=== PATIENT | female | born 1970 | race American Indian/Alaskan Native ===

== ENCOUNTER 2017-07-11 14:23 | Inpatient (IN) | payer OTHER ==
[2017-07-11] MEDS ORDERED: Enalaprilat 2.5 MG/2 ML IV ONE (15:15)
[2017-07-11] MEDS ORDERED: Enalaprilat 2.5 MG/2 ML ONE (15:34)
[2017-07-11 15:47] LABS: BASO % 0.3 % (0.0-2.0); EOS % 0.5 % (0.0-4.0); HEMOGLOBIN 12.3 g/dL (11.0-16.0); LYMPH # 1.3 K/uL (1.0-4.3); LYMPH % 12.7 % (20.0-40.0); MEAN CELL VOLUME 87.2 fL (81.0-99.0); MEAN CORPUSCULAR HEMOGLOBIN 29.2 pg (27.0-31.0); MEAN CORPUSCULAR HGB CONC 33.5 g/dL (33.0-37.0); MEAN PLATELET VOLUME 7.8 fL (7.2-11.7); MONO # 0.3 K/uL (0.0-0.8); MONO % 3.3 % (0.0-10.0); NEUT # 8.4 K/uL (1.8-7.0); NEUT % 83.2 % (50.0-75.0); RBC 4.22 Mil/uL (3.80-5.20); RED CELL DISTRIBUTION WIDTH 12.9 % (11.5-14.5); WHITE BLOOD COUNT 10.1 K/uL (4.8-10.8)
[2017-07-11 16:00] LABS: ALBUMIN 4.2 g/dL (3.5-5.0); CALCIUM 11.6 mg/dl (8.6-10.4)
--- NOTE | 2017-07-11 16:11 | CT ---
PROCEDURE: CT HEAD WITHOUT CONTRAST. HISTORY: Headache. Hypertension. COMPARISON: None available. TECHNIQUE: Axial computed tomography images were obtained through the head/brain without intravenous contrast. Radiation dose: Total exam DLP = 888 mGy-cm. This CT exam was performed using one or more of the following dose reduction techniques: Automated exposure control, adjustment of the mA and/or kV according to patient size, and/or use of iterative reconstruction technique. FINDINGS: HEMORRHAGE: No intracranial hemorrhage. BRAIN: No mass effect or edema. No atrophy or chronic microvascular ischemic changes. VENTRICLES: Unremarkable. No hydrocephalus. CALVARIUM: Unremarkable. PARANASAL SINUSES: Unremarkable as visualized. No significant inflammatory changes. MASTOID AIR CELLS: Unremarkable as visualized. No inflammatory changes. OTHER FINDINGS: None. IMPRESSION: Normal CT of the Head.
[2017-07-11] MEDS ORDERED: Labetalol 25mg/5ml Syringe IVP STA (19:51)
[2017-07-11] MEDS ORDERED: Labetalol 25mg/5ml Syringe ONE (20:00)
--- NOTE | 2017-07-11 21:30 | C.PDOC ---
Time Seen by Provider: 07/11/17 14:53 Chief Complaint (Nursing): High Blood Pressure History Per: Patient Onset/Duration Of Symptoms: Unknown Current Symptoms Are (Timing): Still Present Associated Symptoms: Headache Severity: Severe Exacerbating Factor(s): Pos: None Additional History Per: Prior Records Past Medical History Reviewed: Historical Data, Nursing Documentation, Vital Signs Vital Signs: Last Vital Signs Temp 98.9 F 07/11/17 17:35 Pulse 72 07/11/17 17:35 Resp 16 07/11/17 17:35 BP 191/121 H 07/11/17 18:28 Pulse Ox 100 07/11/17 17:35 - Medical History PMH: HTN Family History: States: Unknown Family Hx - Social History Hx Alcohol Use: Yes Hx Substance Use: No Review Of Systems Except As Marked, All Systems Reviewed And Found Negative. Constitutional: Negative for: Fever, Weakness Eyes: Negative for: Vision Change Cardiovascular: Negative for: Chest Pain Respiratory: Negative for: Shortness of Breath Gastrointestinal: Negative for: Vomiting, Abdominal Pain Musculoskeletal: Negative for: Neck Pain, Back Pain Skin: Negative for: Rash Neurological: Positive for: Headache. Negative for: Weakness, Numbness, Seizures, Altered Mental Status Physical Exam - Physical Exam Appears: Non-toxic, No Acute Distress Skin: Normal Color, Warm, Dry, No Rash Head: Atraumatic, Normacephalic Eye(s): bilateral: PERRL, EOMI Neck: Normal ROM, Supple Cardiovascular: Rhythm Regular Respiratory: Normal Breath Sounds, No Accessory Muscle Use Gastrointestinal/Abdominal: Soft, No Tenderness Back: No CVA Tenderness Extremity: Normal ROM, No Pedal Edema, No Calf Tenderness Neurological/Psych: Oriented x3, Normal Speech, Normal Cognition, Normal Motor, Normal Sensation ED Course And Treatment - Laboratory Results Result Diagrams: 07/11/17 15:42 07/11/17 15:42 Lab Interpretation: Abnormal Interpretation Of Abnormal: Renal insufficiency O2 Sat by Pulse Oximetry: 100 Pulse Ox Interpretation: Normal - CT Scan/US CT head Other Rad Studies (CT/US): Read By Radiologist, Radiology Report Reviewed CT/US Interpretation: IMPRESSION: Normal CT of the Head. Progress - Interventions Interventions:: Observation - Medications Administered Oral: Acetaminophen, Antihypertensive Intravenous: Antihypertensive - Data Reviewed Data Reviewed: Lab, Diagnostic imaging, Old records - Patient Status Patient status: Partially improved - Critical Care Citical Care: Excluding Proc Time Critical Care Time: 60 minutes - Continuity of Care Discussed patient case with:: Patient, ED Nurse, On-call PMD-pt unassigned - Patient Plan Patient Plan: Admission, Telemetry Disposition Discussed With : Lg Martinez Comment: He accepted pt on hospitalist service. Doctor Will See Patient In The: Hospital Counseled Patient/Family Regarding: Studies Performed, Diagnosis - Disposition Disposition: HOSPITALIZED Disposition Time: 21:32 Condition: GUARDED - Clinical Impression Clinical Impression: Hypertensive urgency
[2017-07-11] MEDS ORDERED: Albuterol-Ipratrop 3 mg / 0.5 (3 ml) UD ONE (22:20)
--- NOTE | 2017-07-11 22:59 | CP.PCM.HP ---
<Mary Han - Last Filed: 07/12/17 14:55> History of Present Illness - History of Present Illness History of Present Illness: CC: headache, nausea HPI: 46-year-old female presents to ED via ambulance for evaluation of headache and nausea for one day. She states the pain started gradually throughout the morning, rated 10/10 at its worst with no relief from Excedrin. She then went to urgent care who referred her to ED via ambulance for evaluation. Pain located "at the top of the head" with no radiation, described as dull and throbbing. She states this is the second episode, first occurred approximately 2 weeks ago with symptoms lasting "a few days" and resolving spontaneously. Pain is currently rated 6/10. Patient states she was previously on anti- hypertensive medication for about 1 year, then PMD stopped it in October 2016. Reports unrestricted diet including salty/fried foods and also drinks caffeinated soda and tea daily. Patient denies vision change, photophobia, phonophobia, recent illness, dizziness, neck stiffness, nausea/vomiting, diarrhea/constipation. Patient denied ever seeing a real estate appraiser supervisor or having studies done on the heart. 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 Laura Goodman Present on Admission - Present on Admission Any Indicators Present on Admission: No History of DVT/PE: No History of Uncontrolled Diabetes: No Urinary Catheter: No Decubitus Ulcer Present: No Review of Systems - Review of Systems All systems: reviewed and no additional remarkable complaints except - Constitutional Constitutional: Headache. absent: Anorexia, Fever, Frequent Falls, Malaise - EENT Eyes: absent: Blurred Vision, Change in Vision, Diplopia Nose/Mouth/Throat: absent: Sinus Pressure, Sore Throat, Throat Swelling, Neck Pain - Cardiovascular Cardiovascular: absent: Chest Pain, Diaphoresis, Dyspnea - Respiratory Respiratory: absent: Cough, Dyspnea - Gastrointestinal Gastrointestinal: absent: Abdominal Pain, Change in Stool Character, Constipation, Diarrhea - Musculoskeletal Musculoskeletal: As Per HPI. absent: Abnormal Gait, Arthralgias, Back Pain, Limited Range of Motion, Loss of Height, Muscle Weakness, Neck Pain - Neurological Neurological: Disequilibrium. absent: Abnormal Gait, Abnormal Hearing - Psychiatric Psychiatric: absent: Anxiety Past Patient History - Past Social History Smoking Status: Former Smoker Alcohol: Social - CARDIAC Hx Hypertension: Yes - PSYCHIATRIC Hx Substance Use: No Meds Allergies/Adverse Reactions: Allergies Allergy/AdvReac Type Severity Reaction Status Date / Time No Known Allergies Allergy Verified 07/11/17 14:28 Physical Exam - Constitutional Appears: Non-toxic, No Acute Distress - Head Exam Head Exam: ATRAUMATIC, NORMAL INSPECTION, NORMOCEPHALIC - Eye Exam Eye Exam: EOMI, Normal appearance Pupil Exam: NORMAL ACCOMODATION, PERRL - ENT Exam ENT Exam: Mucous Membranes Moist - Neck Exam Neck exam: Positive for: Normal Inspection. Negative for: Tenderness, Thyromegaly - Respiratory Exam Respiratory Exam: Clear to Auscultation Bilateral, NORMAL BREATHING PATTERN. absent: Accessory Muscle Use - Cardiovascular Exam Cardiovascular Exam: REGULAR RHYTHM, +S1, +S2. absent: Bradycardia, Tachycardia - GI/Abdominal Exam GI & Abdominal Exam: Soft. absent: Distended, Firm, Tenderness - Extremities Exam Extremities exam: Positive for: full ROM, normal capillary refill, normal inspection, pedal pulses present. Negative for: calf tenderness, pedal edema - Back Exam Back exam: FULL ROM, NORMAL INSPECTION. absent: CVA tenderness (L), CVA tenderness (R) - Neurological Exam Neurological exam: CN II-XII Intact, Oriented x3, Reflexes Normal - Psychiatric Exam Psychiatric exam: Normal Affect, Normal Mood Results - Vital Signs Recent Vital Signs: Last Vital Signs Temp 98.9 F 07/11/17 17:35 Pulse 72 07/11/17 17:35 Resp 17 07/11/17 22:33 BP 154/98 H 07/11/17 22:53 Pulse Ox 100 07/11/17 21:32 - Labs Result Diagrams: 07/11/17 15:42 07/11/17 15:42 Labs: Laboratory Results - last 24 hr 07/11/17 07/11/17 15:42 15:42 WBC 10.1 RBC 4.22 Hgb 12.3 Hct 36.8 MCV 87.2 MCH 29.2 MCHC 33.5 RDW 12.9 Plt Count 259 MPV 7.8 Neut % (Auto) 83.2 H Lymph % (Auto) 12.7 L [place] % (Auto) 3.3 Eos % (Auto) 0.5 Baso % (Auto) 0.3 Neut # (Auto) 8.4 H Lymph # (Auto) 1.3 [place] # (Auto) 0.3 Eos # (Auto) 0.0 Baso # (Auto) 0.0 Sodium 141 Potassium 3.8 Chloride 105 Carbon Dioxide 25 Anion Gap 15 BUN 26 H Creatinine 1.8 H Est GFR ( Amer) 37 Est GFR (Non-Af Amer) 30 Random Glucose 98 Calcium 11.6 H Total Bilirubin 0.4 AST 22 ALT 18 Alkaline Phosphatase 134 H Total Protein 8.4 H Albumin 4.2 Globulin 4.3 H Albumin/Globulin Ratio 1.0 Assessment & Plan - Assessment and Plan (Free Text) Assessment: HTN urgency Patient has history of htn for which she was given htn medication and was told to stop in October 2016 [facility] in [place] is her Pharmacy (for follow up on the names and doses of her medications) Patient was admitted to telemetry Blood pressure SBP 170s after labetalol and hydralazine in ER home diet: fried food, salty food. f/u Lipid Panel f/u A1c f/u TSH f/u ROMIs x 3 f/u EKGs x 3 Imaging: CT head: no acute processes noted medications in ER: Vasotec 15:15, Amlodipine 5 mg PO given 17:50, Labetalol 20 mg IVP 19:51, Hydralazine 21:26, Labetalol 200 mg PO 21:26 Medications: Metoprolol 25 mg PO BID Hydralazine 10 mg IVP Q6H PRN HTN Crestor 20 mg POQHS Neurochecks Q4H Renal Insufficiency BUN/Cr elevated monitor consider Nephro consult if BUN/Cr remains elevated Prophylaxis scds discussed with Dr. Michelle Han DO PGY1 - Date & Time Date: 07/11/17 Time: 23:08 <Lg Martinez - Last Filed: 07/12/17 20:10> Results - Vital Signs Recent Vital Signs: Last Vital Signs Temp 98.5 F 07/12/17 15:15 Pulse 69 07/12/17 15:15 Resp 20 07/12/17 15:15 BP 161/92 H 07/12/17 15:15 Pulse Ox 97 07/12/17 15:15 - Labs Result Diagrams: 07/12/17 06:48 07/12/17 06:48 Labs: Laboratory Results - last 24 hr 07/12/17 07/12/17 07/12/17 00:23 00:54 06:48 WBC 8.5 RBC 3.76 L Hgb 11.2 Hct 32.7 L MCV 86.8 MCH 29.8 MCHC 34.4 RDW 12.6 Plt Count 250 MPV 8.2 Neut % (Auto) 68.7 Lymph % (Auto) 22.3 [place] % (Auto) 8.0 Eos % (Auto) 0.7 Baso % (Auto) 0.3 Neut # (Auto) 5.8 Lymph # (Auto) 1.9 [place] # (Auto) 0.7 Eos # (Auto) 0.1 Baso # (Auto) 0.0 PT INR APTT Sodium Potassium Chloride Carbon Dioxide Anion Gap BUN Creatinine Est GFR ( Amer) Est GFR (Non-Af Amer) Random Glucose Hemoglobin A1c Calcium Phosphorus Magnesium Total Bilirubin AST ALT Alkaline Phosphatase Total Creatine Kinase 43 CK-MB (Mass) 0.51 Troponin I < 0.0120 Total Protein Albumin Globulin Albumin/Globulin Ratio Triglycerides Cholesterol LDL Cholesterol Direct HDL Cholesterol Free T4 TSH 3rd Generation Urine Color Straw Urine Clarity Clear Urine pH 7.0 Ur Specific [place] 1.006 Urine Protein 2+ H Urine Glucose (UA) Normal Urine Ketones Negative Urine Blood Negative Urine Nitrate Negative Urine Bilirubin Negative Urine Urobilinogen Normal Ur Leukocyte Esterase 1+ H Urine WBC (Auto) 8 H Urine RBC (Auto) 1 Ur Squamous Epith Cells 5 Urine Bacteria Occ H Hepatitis A IgM Ab Hep Bs Antigen Hep B Core IgM Ab Hepatitis C Antibody 07/12/17 07/12/17 07/12/17 06:48 06:48 06:48 WBC RBC Hgb Hct MCV MCH MCHC RDW Plt Count MPV Neut % (Auto) Lymph % (Auto) [place] % (Auto) Eos % (Auto) Baso % (Auto) Neut # (Auto) Lymph # (Auto) [place] # (Auto) Eos # (Auto) Baso # (Auto) PT 11.0 INR 1.0 APTT 32 Sodium 139 Potassium 3.3 L Chloride 107 Carbon Dioxide 23 Anion Gap 13 BUN 22 H Creatinine 2.0 H Est GFR ( Amer) 32 Est GFR (Non-Af Amer) 27 Random Glucose 91 Hemoglobin A1c 5.6 Calcium 11.8 H Phosphorus 3.5 Magnesium 2.1 Total Bilirubin 0.2 AST 21 ALT < 6 L D Alkaline Phosphatase 108 Total Creatine Kinase CK-MB (Mass) Troponin I Total Protein 7.3 Albumin 3.7 Globulin 3.6 Albumin/Globulin Ratio 1.0 Triglycerides 89 Cholesterol 249 H LDL Cholesterol Direct 172 H HDL Cholesterol 47 Free T4 TSH 3rd Generation 0.67 Urine Color Urine Clarity Urine pH Ur Specific [place] Urine Protein Urine Glucose (UA) Urine Ketones Urine Blood Urine Nitrate Urine Bilirubin Urine Urobilinogen Ur Leukocyte Esterase Urine WBC (Auto) Urine RBC (Auto) Ur Squamous Epith Cells Urine Bacteria Hepatitis A IgM Ab Hep Bs Antigen Hep B Core IgM Ab Hepatitis C Antibody 07/12/17 07/12/17 07/12/17 06:48 12:00 12:00 WBC RBC Hgb Hct MCV MCH MCHC RDW Plt Count MPV Neut % (Auto) Lymph % (Auto) [place] % (Auto) Eos % (Auto) Baso % (Auto) Neut # (Auto) Lymph # (Auto) [place] # (Auto) Eos # (Auto) Baso # (Auto) PT INR APTT Sodium Potassium Chloride Carbon Dioxide Anion Gap BUN Creatinine Est GFR ( Amer) Est GFR (Non-Af Amer) Random Glucose Hemoglobin A1c Calcium Phosphorus Magnesium Total Bilirubin AST ALT Alkaline Phosphatase Total Creatine Kinase 51 CK-MB (Mass) 0.26 Troponin I < 0.0120 Total Protein Albumin Globulin Albumin/Globulin Ratio Triglycerides Cholesterol LDL Cholesterol Direct HDL Cholesterol Free T4 1.07 TSH 3rd Generation Urine Color Urine Clarity Urine pH Ur Specific [place] Urine Protein Urine Glucose (UA) Urine Ketones Urine Blood Urine Nitrate Urine Bilirubin Urine Urobilinogen Ur Leukocyte Esterase Urine WBC (Auto) Urine RBC (Auto) Ur Squamous Epith Cells Urine Bacteria Hepatitis A IgM Ab Negative Hep Bs Antigen Negative Hep B Core IgM Ab Negative Hepatitis C Antibody Negative Assessment & Plan - Date & Time Date: 07/12/17 (I have seen and examined the patient. I agree with the findings and plan of care as documented by Dr. Han. Patient with hypertensive urgency. Multiple BP meds given with some effect in ED. Continue and adjust BP meds as needed. Also with renal insufficiency. Continue to monitor and consult nephrology as needed. Monitor for acute changes.) Time: 20:09 Attending/Attestation - Attestation I have personally seen and examined this patient.: Yes I have fully participated in the care of the patient.: Yes I have reviewed all pertinent clinical information: Yes
[2017-07-12 00:54] LABS: CK-MB 0.51 ng/mL (0.0-3.38)
[2017-07-12 01:33] LABS: SQUAMOUS EPITHIAL 5 /hpf (0-5); URINE BACTERIA OCC (<OCC); URINE BILIRUBIN NEGATIVE (NEGATIVE); URINE BLOOD NEGATIVE (NEGATIVE); URINE CLARITY Clear (Clear); URINE COLOR Straw (YELLOW); URINE GLUCOSE (UA) NORMAL (Normal); URINE LEUKOCYTE ESTERASE 1+ Leu/uL (Negative); URINE PROTEIN 2+ mg/dL (NEGATIVE); URINE UROBILINOGEN NORMAL mg/dL (0.2-1.0)
[2017-07-12 06:53] LABS: BASO % 0.3 % (0.0-2.0); EOS # 0.1 K/uL (0.0-0.7); EOS % 0.7 % (0.0-4.0); HEMOGLOBIN 11.2 g/dL (11.0-16.0); LYMPH # 1.9 K/uL (1.0-4.3); LYMPH % 22.3 % (20.0-40.0); MEAN CELL VOLUME 86.8 fL (81.0-99.0); MEAN CORPUSCULAR HEMOGLOBIN 29.8 pg (27.0-31.0); MEAN CORPUSCULAR HGB CONC 34.4 g/dL (33.0-37.0); MEAN PLATELET VOLUME 8.2 fL (7.2-11.7); MONO # 0.7 K/uL (0.0-0.8); NEUT # 5.8 K/uL (1.8-7.0); NEUT % 68.7 % (50.0-75.0); RBC 3.76 Mil/uL (3.80-5.20); RED CELL DISTRIBUTION WIDTH 12.6 % (11.5-14.5); WHITE BLOOD COUNT 8.5 K/uL (4.8-10.8)
--- NOTE | 2017-07-12 07:14 | CP.PCM.PN ---
<PeresSilvia oden - Last Filed: 07/12/17 14:34> Subjective - Date & Time of Evaluation Date of Evaluation: 07/12/17 Time of Evaluation: 07:00 - Subjective Subjective: Medicine Progress Note: Patient was seen and examined at bedside. Per nurse no acute events overnight. Patient denies family history of heart disease, stroke or heart attack in her family but states her mother of kidney failure due to IV drug abuse. Patient denies headache, chest pain, shortness of breath, numbness/ tingling, dizziness, nausea, vomiting, dysuria, fever, chills, diarrhea or constipation. Objective - Vital Signs/Intake and Output Vital Signs (last 24 hours): Temp Pulse Resp BP Pulse Ox 98 F 89 20 130/80 99 07/12/17 04:00 07/12/17 04:00 07/12/17 04:00 07/12/17 04:00 07/12/17 04:00 - Medications Medications: Current Medications Acetaminophen (Tylenol 325mg Tab) 650 mg PO Q6 PRN PRN Reason: Headache Last Admin: 07/12/17 00:06 Dose: 650 mg Hydralazine HCl (Apresoline) 10 mg IVP Q6H PRN PRN Reason: Systolic Blood Pressure Metoprolol Tartrate (Lopressor) 25 mg PO BID MIKE Rosuvastatin Calcium (Crestor) 20 mg PO HS MIKE Last Admin: 07/11/17 22:30 Dose: 20 mg - Labs Labs: 07/12/17 06:48 07/11/17 15:42 PT 11.0 SECONDS (9.7-12.2) 07/12/17 06:48 INR 1.0 07/12/17 06:48 APTT 32 SECONDS (21-34) 07/12/17 06:48 - Constitutional Appears: No Acute Distress - Head Exam Head Exam: ATRAUMATIC, NORMAL INSPECTION - Eye Exam Eye Exam: EOMI, Normal appearance, PERRL Pupil Exam: NORMAL ACCOMODATION - ENT Exam ENT Exam: Mucous Membranes Moist - Respiratory Exam Respiratory Exam: Clear to Ausculation Bilateral, NORMAL BREATHING PATTERN - Cardiovascular Exam Cardiovascular Exam: REGULAR RHYTHM, +S1, +S2 - GI/Abdominal Exam GI & Abdominal Exam: Soft, Normal Bowel Sounds. absent: Tenderness - Extremities Exam Extremities Exam: Normal Capillary Refill, Normal Inspection. absent: Joint Swelling, Pedal Edema, Tenderness - Neurological Exam Neurological Exam: Alert, Awake, Oriented x3 - Psychiatric Exam Psychiatric exam: Normal Affect, Normal Mood - Skin Skin Exam: Normal Color Assessment and Plan - Assessment and Plan (Free Text) Assessment: HTN Emergency - s/p uncontrolled blood pressure resulting in [place] - Patient states she has not been on any medications for over a year and does not see a physician regularly - Patient was admitted to telemetry - Blood pressure is now controlled - Trop x2 negative - f/u 3rd trop - EKG: NSR at 70bpm - Medication: * Metoprolol Tartrate 25mg po bid * Aspirin 81mg daily * Hydralazine 10mg IV q6 prn - Imaging: * CT head: no acute processes noted * f/u ECHO Acute Renal Insufficiency secondary to uncontrolled blood pressure BUN/Cr elevated monitor Nephro Consult: Dr. Sanders --> help appreciated - Bladder US: Increased echogenicity of both kidneys suggesting medical renal disease. Bilateral centimeter cysts. No significant postvoid residual volume HLD - Lipid Panel: Triglycerides 89; Total Cholesterol 249; LDL 172; HDL 47 - hA1c 5.6 - Crestor 5mg daily Prophylaxis - DVT risk of 1 - SCDs - GI prophylaxis not indicated - Heart Healthy/Low carb/Low sodium Diet Case discussed with Dr. Kassy Peres PGY-1 <Ludmila Elena V - Last Filed: 07/13/17 00:13> Objective - Vital Signs/Intake and Output Vital Signs (last 24 hours): Temp Pulse Resp BP Pulse Ox 98.2 F 72 20 161/92 H 99 07/12/17 23:00 07/12/17 23:00 07/12/17 23:00 07/12/17 15:15 07/12/17 23:00 Intake and Output: 07/12/17 07/13/17 18:59 06:59 Intake Total 600 Balance 600 - Medications Medications: Current Medications Acetaminophen (Tylenol 325mg Tab) 650 mg PO Q6 PRN PRN Reason: Headache Last Admin: 07/12/17 00:06 Dose: 650 mg Aspirin (Ecotrin) 81 mg PO DAILY [facility] Last Admin: 07/12/17 11:49 Dose: 81 mg Carvedilol (Coreg) 6.25 mg PO BID [facility] Last Admin: 07/12/17 17:41 Dose: 6.25 mg Enoxaparin Sodium (Lovenox) 30 mg SC DAILY [facility] Last Admin: 07/12/17 09:18 Dose: 30 mg Hydralazine HCl (Apresoline) 10 mg IVP Q6H PRN PRN Reason: Systolic Blood Pressure Rosuvastatin Calcium (Crestor) 5 mg PO HS [facility] Last Admin: 07/12/17 21:01 Dose: 5 mg - Labs Labs: 07/12/17 06:48 07/12/17 06:48 PT 11.0 SECONDS (9.7-12.2) 07/12/17 06:48 INR 1.0 07/12/17 06:48 APTT 32 SECONDS (21-34) 07/12/17 06:48 Attending/Attestation - Attestation I have personally seen and examined this patient.: Yes I have fully participated in the care of the patient.: Yes I have reviewed all pertinent clinical information, including history, physical exam and plan: Yes Notes (Text): Patient seen, examined and case discussed with anesthesiology medical doctor. Patient reports she used to take anti-hypertensive medications, but stopped taking about Sept a year ago, and had tried weight loss modifications which helped but she gained back the weight. Patient has never seen a primary care doctor; she usually goes to urgent care clinic. I have spoken with her at length in regards to risk associated with dangerous levels of blood pressure including but not limited to stroke, heart attack and possibly her kidneys needing dialysis in the future. Patient reports she is familiar with dialysis; her mother used to be on dialysis, the was attribute to medications. Patient received multiple anti-hypertensives overnight. Will monitor blood pressure according. We will consult nephrology; patient denies known hx of kidney problems but she has abnormal renal function that warrants future workup. Patient is asymptomatic. Denies chest pain, denies lightheadedness, denies palpitations, denies stomach pain, denies nausea, denies trouble urinating, denies headache. Assessment/Plan 1) HTN Urgency * Patient has acute renal insuffiency unclear what is her baseline since she does not see a doctor regularly. * Monitor on telemetry * Check rest of cardiac enzymes which are negative. There is no LVH noted on EKG. We will order echocardiogram Medication: * Metoprolol Tartrate 25mg po bid * Aspirin 81mg daily * Hydralazine 10mg IV q6 prn SBP>160 * Crestor 5mg POqHS - Imaging: * CT head: no acute processes noted * f/u ECHO 2) Acute Renal Insufficiency * Nephro Consult: Dr. Sanders --> help appreciated * Bladder US: Increased echogenicity of both kidneys suggesting medical renal disease. Bilateral centimeter cysts. No significant postvoid residual volume * BUN/Cr elevated; no prior baseline to compared to * workup per nephrology 3) HLD * Lipid Panel: Triglycerides 89; Total Cholesterol 249; LDL 172; HDL 47 * hA1c 5.6 * Crestor 5mg POqHS 4) Prophylaxis * DVT risk of 1 * SCDs * GI prophylaxis not indicated * Heart Healthy/Low carb/Low sodium Diet We will follow-up with nephrology in regards to workup.
[2017-07-12 07:24] LABS: ALBUMIN 3.7 g/dL (3.5-5.0); ALT/SGPT < 6 U/L (9-52); AST/SGOT 21 U/L (14-36); BLOOD UREA NITROGEN 22 mg/dL (7-17); CALCIUM 11.8 mg/dl (8.6-10.4); GFR AFRICAN-AMERICAN 32; GFR NON-AFRICAN AMERICAN 27; HDL CHOLESTEROL 47 mg/dL (30-70)
[2017-07-12 07:32] LABS: LDL CHOLESTEROL 172 mg/dL (0-129)
[2017-07-12] MEDS: Enoxaparin 30 mg Syringe SC SCH (09:18)
[2017-07-12] MEDS ORDERED: Potassium Chloride 20 mEq ER Tab PO ONE (10:19)
--- NOTE | 2017-07-12 11:38 | US ---
PROCEDURE: Ultrasound of the Kidneys HISTORY: acute renal failure COMPARISON: None available. TECHNIQUE: Sonogram of the kidneys. FINDINGS: RIGHT KIDNEY: Measures: 11.2 x 5.7 x 5.6 cm. Lower pole cyst measuring 0.3 x 0.6 x 0.8 cm. Increased echogenicity. Normal in size and contour. No stone, solid mass lesion or hydronephrosis visualized. LEFT KIDNEY: Measures: 10.7 x 5.0 x 5.8 cm. Midpole cyst measuring 0.8 x 0.7 x 0.7 cm. Increased echogenicity. Normal in size and contour. No stone, solid mass lesion or hydronephrosis visualized. OTHER FINDINGS: Urinary bladder prevoid volume measures 193.8 cc. No significant postvoid residual is evident. Both ureteral jets were visualized. IMPRESSION: Increased echogenicity of both kidneys suggesting medical renal disease. Bilateral centimeter cysts. No significant postvoid residual volume
[2017-07-12 12:37] LABS: CK-MB 0.26 ng/mL (0.0-3.38)
[2017-07-12 13:09] LABS: HEPATITIS B SURFACE AG Negative (NEGATIVE)
[2017-07-12 13:14] LABS: HEPATITIS A IGM NEGATIVE (NEGATIVE); HEPATITIS B CORE AB NEGATIVE (NEGATIVE)
[2017-07-12 13:26] LABS: HEPATITIS C ANTIBODY NEGATIVE (NEGATIVE)
[2017-07-12 20:30] LABS: COMPLEMENT C4 65.4 mg/dL (14.0-44.0)
[2017-07-12 20:51] LABS: HIV 1&2 ANTIBODY NEGATIVE (NEGATIVE)
[2017-07-12 22:15] LABS: BARBITURATES, UR NEGATIVE (NEGATIVE); BENZODIAZEPINES, UR NEGATIVE (NEGATIVE); OPIATES, UR NEGATIVE (NEGATIVE); PHENCYCLIDINE, UR NEGATIVE (NEGATIVE)
[2017-07-13] MEDS ORDERED: Ergocalciferol 50,000 Intl Units Cap PO SCH (00:15)
--- NOTE | 2017-07-13 04:28 | CON ---
DATE: NEPHROLOGY CONSULTATION HISTORY OF PRESENT ILLNESS: A 46-year-old female with past medical history of hypertension, presented yesterday to ED due to headache, found to have hypertensive urgency. Nephrology is being consulted for renal insufficiency. The patient reports being in her usual state of health; however, she started experiencing severe headache yesterday with no relief from Excedrin. The patient otherwise is not on any antihypertensive medications since about one year and is not following with any PMD lately. She does not know about any history of renal insufficiency. The patient otherwise denies any chest pain or palpitations. Denies any shortness of breath, dyspnea on exertion, or leg swelling. She is not compliant with salt restricted diet. 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 PAST MEDICAL HISTORY: Hypertension. PAST SURGICAL HISTORY: Status post . FAMILY HISTORY: Mother was with ESRD, on dialysis (reportedly due to drug abuse). REVIEW OF SYSTEMS: CONSTITUTIONAL: Has been gaining weight lately. HEENT: Denies any blurry vision. Denies any sore throat or upper respiratory problems. RESPIRATORY: Denies any cough or difficulty breathing. CARDIOVASCULAR: As per HPI. GI: No nausea, vomiting, or diarrhea. : No dysuria. No urinary frequency or urgency. MUSCULOSKELETAL: Denies any aches or pains. Denies using any pain medications. PSYCHIATRIC: Denies any anxiety per record. NEURO: Denies any dizziness. PHYSICAL EXAMINATION: VITAL SIGNS: Blood pressure on presentation 212/146, heart rate 80, respirations 16, temperature 98.1, and O2 sat 99%. Vitals this morning, blood pressure 133/84 and heart rate 64. GENERAL: No distress. Conversing coherently in full sentences. HEENT: Moist mucous membranes. Nonicteric. No cervical lymphadenopathy. No elevated JVD. RESPIRATORY: Lungs are clear to auscultation bilaterally. No rales or rhonchi. No wheezes. CARDIOVASCULAR: Heart sounds S1 and S2 normal. No murmurs. No gallops. No rubs. GASTROINTESTINAL: Abdomen is soft, nontender, and nondistended. GENITOURINARY: No bladder distention. EXTREMITIES: No lower leg edema. SKIN: Warm. No cyanosis. NEURO: No resting tremor. PSYCHIATRIC: Normal mood. Normal affect. LABORATORY DATA: CBC: WBC 8.5, hemoglobin 11.2, hematocrit 32.7, and platelets 250. Chemistry panel: Sodium 139, potassium 3.3, chloride 107, bicarbonate 23, BUN 22, creatinine 2, calcium 11.8. Phosphorus 3.5, magnesium 2.1. AST 21, ALT less than 6, albumin 3.7. Lipid panel: Cholesterol 249, LDL 172. UA: 2+ urine protein, 1+ leukocyte esterase, 8 wbc's per high-power field, 1 rbc per high-power field, occasional bacteria. Hepatitis serology grossly negative. Renal ultrasound directly observed showing bilateral echogenic kidneys. ASSESSMENT AND PLAN: 1. Chronic kidney disease. No previous labs available to trend serum creatinine, although renal ultrasound is indicative of chronic renal insufficiency. The patient does have 2+ proteinuria on UA, so we will need to further assess possible etiology of renal insufficiency. We will obtain full serologic workup. The patient is also with hypercalcemia without evidence of volume depletion. Concerning for possible plasma cell dyscrasia. Checking C3, C4, HIV antibody, SHU, ANCA, serum free light chain, SPEP, serum immunofixation. Checking 24-hour urine protein electrophoresis. 2. Hypertensive urgency. Blood pressure better controlled after the patient received labetalol. Currently on metoprolol 25 mg p.o. b.i.d. as well as started on amlodipine 5 mg daily. Continue the same for now. Obtain urine drug screen to look for possible contributing cause of elevated blood pressure. 3. Hypercalcemia. Need to rule out underlying malignancy. We will obtain PTH, PTHrP, and vitamin D 25-hydroxy levels. Obtaining labs, looking for possible plasma cell dyscrasia as above. 4. Anemia, relatively mild. We will check iron stores. 5. Proteinuria, 2+ albuminuria on UA. We will need quantitative measurement and need to look for a non-albumin protein test being ordered as above. Thank you for this referral. We will be following up closely. Ricci Sanders MD
[2017-07-13 07:26] LABS: BASO % 0.4 % (0.0-2.0); EOS # 0.1 K/uL (0.0-0.7); EOS % 1.6 % (0.0-4.0); HEMOGLOBIN 11.8 g/dL (11.0-16.0); LYMPH # 1.6 K/uL (1.0-4.3); MEAN CELL VOLUME 86.7 fL (81.0-99.0); MEAN CORPUSCULAR HEMOGLOBIN 29.6 pg (27.0-31.0); MEAN CORPUSCULAR HGB CONC 34.1 g/dL (33.0-37.0); MEAN PLATELET VOLUME 7.7 fL (7.2-11.7); MONO # 0.7 K/uL (0.0-0.8); MONO % 8.4 % (0.0-10.0); NEUT # 5.7 K/uL (1.8-7.0); NEUT % 69.6 % (50.0-75.0); RED CELL DISTRIBUTION WIDTH 12.8 % (11.5-14.5); WHITE BLOOD COUNT 8.2 K/uL (4.8-10.8)
[2017-07-13 07:39] LABS: ALBUMIN 3.9 g/dL (3.5-5.0); CALCIUM 12.3 mg/dl (8.6-10.4)
[2017-07-13] MEDS: Enoxaparin 30 mg Syringe SC SCH (10:16)
--- NOTE | 2017-07-13 10:37 | CP.PCM.PN ---
Objective - Vital Signs/Intake and Output Vital Signs (last 24 hours): Temp Pulse Resp BP Pulse Ox 99.1 F 77 18 144/93 H 99 07/13/17 07:00 07/13/17 07:42 07/13/17 07:00 07/13/17 07:00 07/13/17 07:00 Intake and Output: 07/13/17 07/13/17 06:59 18:59 Output Total 350 Balance -350 - Medications Medications: Current Medications Acetaminophen (Tylenol 325mg Tab) 650 mg PO Q6 PRN PRN Reason: Headache Last Admin: 07/12/17 00:06 Dose: 650 mg Aspirin (Ecotrin) 81 mg PO DAILY [facility] Last Admin: 07/13/17 10:16 Dose: 81 mg Carvedilol (Coreg) 6.25 mg PO BID [facility] Last Admin: 07/13/17 10:16 Dose: 6.25 mg Enoxaparin Sodium (Lovenox) 30 mg SC DAILY [facility] Last Admin: 07/13/17 10:16 Dose: 30 mg Ergocalciferol (Drisdol 50,000 Intl Units Cap) 1 cap PO Q7D [facility] Last Admin: 07/13/17 00:38 Dose: 1 cap Hydralazine HCl (Apresoline) 10 mg IVP Q6H PRN PRN Reason: Systolic Blood Pressure Last Admin: 07/13/17 00:38 Dose: 10 mg Rosuvastatin Calcium (Crestor) 5 mg PO HS [facility] Last Admin: 07/12/17 21:01 Dose: 5 mg - Labs Labs: 07/13/17 07:16 07/13/17 07:16 PT 11.0 SECONDS (9.7-12.2) 07/12/17 06:48 INR 1.0 07/12/17 06:48 APTT 32 SECONDS (21-34) 07/12/17 06:48
--- NOTE | 2017-07-13 11:48 | CP.PCM.DIS ---
<Silvia Peres - Last Filed: 07/13/17 15:30> Provider - Provider Date of Admission: 07/11/17 21:32 Attending physician: Ludmila Elena DO Time Spent in preparation of Discharge (in minutes): 40 Hospital Course - Lab Results Lab Results: Most Recent Lab Values WBC 8.2 K/uL (4.8-10.8) 07/13/17 07:16 RBC 4.00 Mil/uL (3.80-5.20) 07/13/17 07:16 Hgb 11.8 g/dL (11.0-16.0) 07/13/17 07:16 Hct 34.7 % (34.0-47.0) 07/13/17 07:16 MCV 86.7 fL (81.0-99.0) 07/13/17 07:16 MCH 29.6 pg (27.0-31.0) 07/13/17 07:16 MCHC 34.1 g/dL (33.0-37.0) 07/13/17 07:16 RDW 12.8 % (11.5-14.5) 07/13/17 07:16 Plt Count 275 K/uL (130-400) 07/13/17 07:16 MPV 7.7 fL (7.2-11.7) 07/13/17 07:16 Neut % (Auto) 69.6 % (50.0-75.0) 07/13/17 07:16 Lymph % (Auto) 20.0 % (20.0-40.0) 07/13/17 07:16 [place] % (Auto) 8.4 % (0.0-10.0) 07/13/17 07:16 Eos % (Auto) 1.6 % (0.0-4.0) 07/13/17 07:16 Baso % (Auto) 0.4 % (0.0-2.0) 07/13/17 07:16 Neut # (Auto) 5.7 K/uL (1.8-7.0) 07/13/17 07:16 Lymph # (Auto) 1.6 K/uL (1.0-4.3) 07/13/17 07:16 [place] # (Auto) 0.7 K/uL (0.0-0.8) 07/13/17 07:16 Eos # (Auto) 0.1 K/uL (0.0-0.7) 07/13/17 07:16 Baso # (Auto) 0.0 K/uL (0.0-0.2) 07/13/17 07:16 PT 11.0 SECONDS (9.7-12.2) 07/12/17 06:48 INR 1.0 07/12/17 06:48 APTT 32 SECONDS (21-34) 07/12/17 06:48 Sodium 138 mmol/L (132-148) 07/13/17 07:16 Potassium 3.8 mmol/L (3.6-5.2) 07/13/17 07:16 Chloride 106 mmol/L (98-107) 07/13/17 07:16 Carbon Dioxide 22 mmol/L (22-30) 07/13/17 07:16 Anion Gap 14 (10-20) 07/13/17 07:16 BUN 26 mg/dL (7-17) H 07/13/17 07:16 Creatinine 1.9 mg/dL (0.7-1.2) H 07/13/17 07:16 Est GFR ( Amer) 34 07/13/17 07:16 Est GFR (Non-Af Amer) 28 07/13/17 07:16 Random Glucose 94 mg/dL (65-105) 07/13/17 07:16 Hemoglobin A1c 5.6 % (4.2-6.5) 07/12/17 06:48 Calcium 12.3 mg/dl (8.6-10.4) H 07/13/17 07:16 Phosphorus 3.5 mg/dL (2.5-4.5) 07/13/17 07:16 Magnesium 2.1 mg/dL (1.6-2.3) 07/13/17 07:16 Total Bilirubin 0.4 mg/dL (0.2-1.3) 07/13/17 07:16 AST 18 U/L (14-36) 07/13/17 07:16 ALT 14 U/L (9-52) 07/13/17 07:16 Alkaline Phosphatase 115 U/L (38-126) 07/13/17 07:16 Total Creatine Kinase 51 U/L (30-135) 07/12/17 12:00 CK-MB (Mass) 0.26 ng/mL (0.0-3.38) 07/12/17 12:00 Troponin I < 0.0120 ng/mL (0.00-0.120) 07/12/17 19:43 Total Protein 7.8 g/dL (6.3-8.3) 07/13/17 07:16 Albumin 3.9 g/dL (3.5-5.0) 07/13/17 07:16 Globulin 3.9 gm/dL (2.2-3.9) 07/13/17 07:16 Albumin/Globulin Ratio 1.0 (1.0-2.1) 07/13/17 07:16 Triglycerides 102 mg/dL (0-149) 07/13/17 07:16 Cholesterol 252 mg/dL (0-199) H 07/13/17 07:16 LDL Cholesterol Direct 172 mg/dL (0-129) H 07/13/17 07:16 HDL Cholesterol 40 mg/dL (30-70) 07/13/17 07:16 25-OH Vitamin D Total < 12.8 NG/ML (30.0-100.0) L 07/12/17 19:43 Free T4 1.07 ng/dL (0.78-2.19) 07/12/17 06:48 TSH 3rd Generation 0.67 mIU/L (0.46-4.68) 07/12/17 06:48 Urine Color Straw (YELLOW) 07/12/17 00:54 Urine Clarity Clear (Clear) 07/12/17 00:54 Urine pH 7.0 (5.0-8.0) 07/12/17 00:54 Ur Specific [place] 1.006 (1.003-1.030) 07/12/17 00:54 Urine Protein 2+ mg/dL (NEGATIVE) H 07/12/17 00:54 Urine Glucose (UA) Normal mg/dL (Normal) 07/12/17 00:54 Urine Ketones Negative mg/dL (NEGATIVE) 07/12/17 00:54 Urine Blood Negative (NEGATIVE) 07/12/17 00:54 Urine Nitrate Negative (NEGATIVE) 07/12/17 00:54 Urine Bilirubin Negative (NEGATIVE) 07/12/17 00:54 Urine Urobilinogen Normal mg/dL (0.2-1.0) 07/12/17 00:54 Ur Leukocyte Esterase 1+ Tanner/uL (Negative) H 07/12/17 00:54 Urine WBC (Auto) 8 /hpf (0-5) H 07/12/17 00:54 Urine RBC (Auto) 1 /hpf (0-3) 07/12/17 00:54 Ur Squamous Epith Cells 5 /hpf (0-5) 07/12/17 00:54 Urine Bacteria Occ (<OCC) H 07/12/17 00:54 Urine Opiates Screen Negative (NEGATIVE) 07/12/17 21:49 Urine Methadone Screen Negative (NEGATIVE) 07/12/17 21:49 Ur Barbiturates Screen Negative (NEGATIVE) 07/12/17 21:49 Ur Phencyclidine Scrn Negative (NEGATIVE) 07/12/17 21:49 Ur Amphetamines Screen Negative (NEGATIVE) 07/12/17 21:49 U Benzodiazepines Scrn Negative (NEGATIVE) 07/12/17 21:49 U Oth Cocaine Metabols Negative (NEGATIVE) 07/12/17 21:49 U Cannabinoids Screen Positive (NEGATIVE) H 07/12/17 21:49 Complement C3 126.0 mg/dL (88.0-165.0) 07/12/17 19:43 Complement C4 65.4 mg/dL (14.0-44.0) H 07/12/17 19:43 RPR Nonreactive (NONREACTIVE) 07/12/17 19:43 Hepatitis A IgM Ab Negative (NEGATIVE) 07/12/17 12:00 Hep Bs Antigen Negative (NEGATIVE) 07/12/17 12:00 Hep B Core IgM Ab Negative (NEGATIVE) 07/12/17 12:00 Hepatitis C Antibody Negative (NEGATIVE) 07/12/17 12:00 HIV 1&2 Antibody Screen Negative (NEGATIVE) 07/12/17 19:43 - Hospital Course Hospital Course: HPI: 46-year-old female presents to ED via ambulance for evaluation of headache and nausea for one day. She states the pain started gradually throughout the morning, rated 10/10 at its worst with no relief from Excedrin. She then went to urgent care who referred her to ED via ambulance for evaluation. Pain located "at the top of the head" with no radiation, described as dull and throbbing. She states this is the second episode, first occurred approximately 2 weeks ago with symptoms lasting "a few days" and resolving spontaneously. Pain is currently rated 6/10. Patient states she was previously on anti- hypertensive medication for about 1 year, then PMD stopped it in October 2016. Reports unrestricted diet including salty/fried foods and also drinks caffeinated soda and tea daily. Patient denies vision change, photophobia, phonophobia, recent illness, dizziness, neck stiffness, nausea/vomiting, diarrhea/constipation. Patient denied ever seeing a dragline operator or having studies done on the heart. 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 Laura Goodman [facility] Course: Patient was admitted for hypertensive emergency with associated headache and nausea. A set of three ECG's were completed and no ST-segment changes were appreciated. In the ED, she was treated with Acetaminophen, Enalaprilat, Hydrochlorothiazide, Amlodipine, Labetolol, Hydralizine, Albuterol/ Ipratropium. Over the course of her stay, she was given one dose of Lopressor on 07/12 and it was discontinued later that day. Additionally she was treated with Crestor 5mg, Apresoline 10mg, Drisdol 50,000 IU, Coreg 6.25mg, Tylenol 325mg, Aspirin 81mg. Patient was discharged with appropriate prescriptions. During this hospitalization the patient was found to have acute renal insufficiency. Dr. Sanders, from nephrology was consulted. A renal/ urinary bladder ultrasound was done and found increased echogenicity of both kidneys suggesting medical renal disease, bilateral centimeter cysts, and no significant postvoid residual volume. She was told to follow-up outpatient with nephrology. Patient was seen and examined at bedside. Patient denied headache, chest pain, shortness of breath, numbness/tingling, dizziness, nausea, vomiting , dysuria, fever, chills, diarrhea or constipation. Images: - CT head: no acute processes noted - Bladder US: Increased echogenicity of both kidneys suggesting medical renal disease. Bilateral centimeter cysts. No significant postvoid residual volume - ECHO: normal bi-ventricular systolic function. Transmitral doppler flow pattern is Grade I-abnormal relaxation pattern. No significant valvular abnormality. There is a trace to small circumferential pericardial effusion. Patient is stable for discharge home. Please take new medications: 1.) Coreg 6.25mg one tablet twice a day 2.) Lisinopril 10mg one tablet daily 3.) Crestor 5mg one tablet daily 4.) Vitamin D one tablet per week Please follow up with Outpatient Case Manager Dr. Sanders. Dr. Sanders's office also has primary care physicians there also you can schedule an appointment. You can also follow up with our [facility] as your primary care physician: [place] [address] #[phone] This is a summary of the patient's hospital course. Refer to full EMR for a complete record. Discharge Exam - Head Exam Head Exam: ATRAUMATIC, NORMAL INSPECTION, NORMOCEPHALIC - Eye Exam Eye Exam: EOMI, Normal appearance, PERRL. absent: Scleral icterus Pupil Exam: NORMAL ACCOMODATION - ENT Exam ENT Exam: Mucous Membranes Moist - Respiratory Exam Respiratory Exam: Clear to PA & Lateral, NORMAL BREATHING PATTERN - Cardiovascular Exam Cardiovascular Exam: REGULAR RHYTHM, +S1, +S2 - GI/Abdominal Exam GI & Abdominal Exam: Normal Bowel Sounds, Soft. absent: Tenderness - Extremities Exam Extremities exam: normal inspection - Neurological Exam Neurological exam: Alert, Oriented x3 - Psychiatric Exam Psychiatric exam: Normal Affect, Normal Mood - Skin Skin Exam: Normal Color Discharge Plan - Discharge Medications Prescriptions: RX: Aspirin [Ecotrin] 81 mg PO DAILY #30 tabec RX: Carvedilol [Coreg] 6.25 mg PO BID #60 tab RX: Lisinopril [Prinivil] 10 mg PO DAILY #30 tablet RX: Rosuvastatin Calcium [Crestor] 5 mg PO HS #30 tab - Follow Up Plan Condition: GUARDED Disposition: HOME/ ROUTINE Instructions: High Blood Pressure in Adults, DASH Diet, Low Salt Diet, Controlling Your Blood Pressure Through Lifestyle, Aspirin, Carvedilol, Ergocalciferol, Lisinopril, Rosuvastatin Additional Instructions: Please take new medications: 1.) Coreg 6.25mg one tablet twice a day 2.) Lisinopril 10mg one tablet daily 3.) Crestor 5mg one tablet daily 4.) Vitamin D one tablet per week Please follow up with Outpatient Case Manager Dr. Sanders. Dr. Sanders's office also has primary care physicians there also you can schedule an appointment. You can also follow up with our [facility] as your primary care physician: [address] [address] #[phone]: [facility] at [facility] [Outside] Ricci Sanders MD [Staff Provider] - <Ludmila Elena V - Last Filed: 07/13/17 17:28> Provider - Provider Date of Admission: 07/11/17 21:32 Attending physician: Ludmila Elena, Hospital Course - Lab Results Lab Results: Most Recent Lab Values WBC 8.2 K/uL (4.8-10.8) 07/13/17 07:16 RBC 4.00 Mil/uL (3.80-5.20) 07/13/17 07:16 Hgb 11.8 g/dL (11.0-16.0) 07/13/17 07:16 Hct 34.7 % (34.0-47.0) 07/13/17 07:16 MCV 86.7 fL (81.0-99.0) 07/13/17 07:16 MCH 29.6 pg (27.0-31.0) 07/13/17 07:16 MCHC 34.1 g/dL (33.0-37.0) 07/13/17 07:16 RDW 12.8 % (11.5-14.5) 07/13/17 07:16 Plt Count 275 K/uL (130-400) 07/13/17 07:16 MPV 7.7 fL (7.2-11.7) 07/13/17 07:16 Neut % (Auto) 69.6 % (50.0-75.0) 07/13/17 07:16 Lymph % (Auto) 20.0 % (20.0-40.0) 07/13/17 07:16 [place] % (Auto) 8.4 % (0.0-10.0) 07/13/17 07:16 Eos % (Auto) 1.6 % (0.0-4.0) 07/13/17 07:16 Baso % (Auto) 0.4 % (0.0-2.0) 07/13/17 07:16 Neut # (Auto) 5.7 K/uL (1.8-7.0) 07/13/17 07:16 Lymph # (Auto) 1.6 K/uL (1.0-4.3) 07/13/17 07:16 [place] # (Auto) 0.7 K/uL (0.0-0.8) 07/13/17 07:16 Eos # (Auto) 0.1 K/uL (0.0-0.7) 07/13/17 07:16 Baso # (Auto) 0.0 K/uL (0.0-0.2) 07/13/17 07:16 PT 11.0 SECONDS (9.7-12.2) 07/12/17 06:48 INR 1.0 07/12/17 06:48 APTT 32 SECONDS (21-34) 07/12/17 06:48 Sodium 138 mmol/L (132-148) 07/13/17 07:16 Potassium 3.8 mmol/L (3.6-5.2) 07/13/17 07:16 Chloride 106 mmol/L (98-107) 07/13/17 07:16 Carbon Dioxide 22 mmol/L (22-30) 07/13/17 07:16 Anion Gap 14 (10-20) 07/13/17 07:16 BUN 26 mg/dL (7-17) H 07/13/17 07:16 Creatinine 1.9 mg/dL (0.7-1.2) H 07/13/17 07:16 Est GFR ( Amer) 34 07/13/17 07:16 Est GFR (Non-Af Amer) 28 07/13/17 07:16 Random Glucose 94 mg/dL (65-105) 07/13/17 07:16 Hemoglobin A1c 5.6 % (4.2-6.5) 07/12/17 06:48 Calcium 12.3 mg/dl (8.6-10.4) H 07/13/17 07:16 Phosphorus 3.5 mg/dL (2.5-4.5) 07/13/17 07:16 Magnesium 2.1 mg/dL (1.6-2.3) 07/13/17 07:16 Total Bilirubin 0.4 mg/dL (0.2-1.3) 07/13/17 07:16 AST 18 U/L (14-36) 07/13/17 07:16 ALT 14 U/L (9-52) 07/13/17 07:16 Alkaline Phosphatase 115 U/L (38-126) 07/13/17 07:16 Total Creatine Kinase 51 U/L (30-135) 07/12/17 12:00 CK-MB (Mass) 0.26 ng/mL (0.0-3.38) 07/12/17 12:00 Troponin I < 0.0120 ng/mL (0.00-0.120) 07/12/17 19:43 Total Protein 7.8 g/dL (6.3-8.3) 07/13/17 07:16 Albumin 3.9 g/dL (3.5-5.0) 07/13/17 07:16 Globulin 3.9 gm/dL (2.2-3.9) 07/13/17 07:16 Albumin/Globulin Ratio 1.0 (1.0-2.1) 07/13/17 07:16 Triglycerides 102 mg/dL (0-149) 07/13/17 07:16 Cholesterol 252 mg/dL (0-199) H 07/13/17 07:16 LDL Cholesterol Direct 172 mg/dL (0-129) H 07/13/17 07:16 HDL Cholesterol 40 mg/dL (30-70) 07/13/17 07:16 25-OH Vitamin D Total < 12.8 NG/ML (30.0-100.0) L 07/12/17 19:43 Free T4 1.07 ng/dL (0.78-2.19) 07/12/17 06:48 TSH 3rd Generation 0.67 mIU/L (0.46-4.68) 07/12/17 06:48 Urine Color Straw (YELLOW) 07/12/17 00:54 Urine Clarity Clear (Clear) 07/12/17 00:54 Urine pH 7.0 (5.0-8.0) 07/12/17 00:54 Ur Specific [place] 1.006 (1.003-1.030) 07/12/17 00:54 Urine Protein 2+ mg/dL (NEGATIVE) H 07/12/17 00:54 Urine Glucose (UA) Normal mg/dL (Normal) 07/12/17 00:54 Urine Ketones Negative mg/dL (NEGATIVE) 07/12/17 00:54 Urine Blood Negative (NEGATIVE) 07/12/17 00:54 Urine Nitrate Negative (NEGATIVE) 07/12/17 00:54 Urine Bilirubin Negative (NEGATIVE) 07/12/17 00:54 Urine Urobilinogen Normal mg/dL (0.2-1.0) 07/12/17 00:54 Ur Leukocyte Esterase 1+ [place]anner/uL (Negative) H 07/12/17 00:54 Urine WBC (Auto) 8 /hpf (0-5) H 07/12/17 00:54 Urine RBC (Auto) 1 /hpf (0-3) 07/12/17 00:54 Ur Squamous Epith Cells 5 /hpf (0-5) 07/12/17 00:54 Urine Bacteria Occ (<OCC) H 07/12/17 00:54 Urine Opiates Screen Negative (NEGATIVE) 07/12/17 21:49 Urine Methadone Screen Negative (NEGATIVE) 07/12/17 21:49 Ur Barbiturates Screen Negative (NEGATIVE) 07/12/17 21:49 Ur Phencyclidine Scrn Negative (NEGATIVE) 07/12/17 21:49 Ur Amphetamines Screen Negative (NEGATIVE) 07/12/17 21:49 U Benzodiazepines Scrn Negative (NEGATIVE) 07/12/17 21:49 U Oth Cocaine Metabols Negative (NEGATIVE) 07/12/17 21:49 U Cannabinoids Screen Positive (NEGATIVE) H 07/12/17 21:49 Complement C3 126.0 mg/dL (88.0-165.0) 07/12/17 19:43 Complement C4 65.4 mg/dL (14.0-44.0) H 07/12/17 19:43 RPR Nonreactive (NONREACTIVE) 07/12/17 19:43 Hepatitis A IgM Ab Negative (NEGATIVE) 07/12/17 12:00 Hep Bs Antigen Negative (NEGATIVE) 07/12/17 12:00 Hep B Core IgM Ab Negative (NEGATIVE) 07/12/17 12:00 Hepatitis C Antibody Negative (NEGATIVE) 07/12/17 12:00 HIV 1&2 Antibody Screen Negative (NEGATIVE) 07/12/17 19:43 Attending/Attestation - Attestation I have personally seen and examined this patient.: Yes I have fully participated in the care of the patient.: Yes I have reviewed all pertinent clinical information, including history, physical exam and plan: Yes Notes (Text): Patient seen, examined, and case discussed with day-time resident. Patient reports she is feeling better. Denies acute complaints. Patient is aware she needs to be compliant on her medication to control her blood pressure. Patient is also aware she needs to continue to make diet modifications to lower her salt and incorporate vegetables in her diet. Patient advised to make blood pressure diary so when she follows-up with a primary care doctor they can adjust her medications accordingly. Patient is aware of the risks of uncontrolled blood pressure including stroke, CT, and dialysis if kidneys no longer working. Resident has spoken with nephrology, stable from his standpoint for discharge recommends colt-inhibitor and beta eva for blood pressure control. Patient is aware to follow-up at his office; was provided his card yesterday. Patient to follow-up on workup pending from hospital at his office. If patient does not have primary care doctor, patient offered to establish care at the [facility] in [place] where she lives. Prescriptions (1 month supply) * Aspirin 81mg PO daily * Coreg 6.25mg PO BID * Lisinopril 10mg PO daily * Crestor 5mg POqHS Patient provided work excuse note at time of discharge. This is a summary of patient's hospitalization. Please see EMR for full details on record. Discharge Diagnoses: 1) HTN Urgency-->controlled * On telemetry Prescriptions: * Aspirin 81mg PO daily * Coreg 6.25mg PO BID * Lisinopril 10mg PO daily Imaging: * CT head: no acute processes noted * ECHO: normal bi ventricular systolic function. Transmitral doppler flow pattern is grade i abnormal relaxation pattern. No significant valvular anoramlity. Trace to small circumferential pericardial effusion 2) Acute Renal Insufficiency Hypercalcemia * Nephrology Consult: Dr. Sanders --> help appreciated * Bladder US: Increased echogenicity of both kidneys suggesting medical renal disease. Bilateral centimeter cysts. No significant postvoid residual volume * BUN/Cr elevated * Per renal standpoint, stable for discharge. Follow-up workup as outpatient * No EKG changes, nor symptomatic of hypercalcemia; recommended to f/u with nephrology 3) Lipid Disorder * Lipid Panel: Triglycerides 89; Total Cholesterol 249; LDL 172; HDL 47 * hA1c 5.6 * Prescription: Crestor 5mg POqHS 4) Prophylaxis * DVT risk of 1 * SCDs * GI prophylaxis not indicated * Heart Healthy/Low carb/Low sodium Diet
--- NOTE | 2017-07-13 15:18 | CARD ---
APPROVED REPORT EXAM: Two-dimensional and M-mode echocardiogram with Doppler and color Doppler. Other Information Quality : GoodRhythm : INDICATION Abnormal EKG/Arrhythmia RISK FACTORS Hypertension 2D DIMENSIONS IVSd1.3 (0.7-1.1cm)LVDd5.2 (3.9-5.9cm) PWd1.1 (0.7-1.1cm)LVDs3.1 (2.5-4.0cm) FS (%) 40.5 %LVEF (%)70.9 (>50%) M-Mode DIMENSIONS Left Atrium (MM)3.63 (2.5-4.0cm)Aortic Root3.19 (2.2-3.7cm) Aortic Cusp Exc.2.44 (1.5-2.0cm) Mitral Valve MV E Nxdsfynw44.1cm/sMV A Adxkclim80.9cm/sE/A ratio0.6 TDI E/Lateral E'0.0E/Medial E'0.0 Tricuspid Valve TR Peak Lttmedhv691wc/sTR Peak Gr.96hiVeMKZI79cwNx LEFT VENTRICLE The left ventricle is normal size. There is normal left ventricular wall thickness. The left ventricular systolic function is normal. The left ventricular ejection fraction is within the normal range. There is normal LV segmental wall motion. Transmitral Doppler flow pattern is Grade I-abnormal relaxation pattern. RIGHT VENTRICLE The right ventricle is normal size. The right ventricular systolic function is normal. ATRIA The left atrium size is normal. The right atrium size is normal. AORTIC VALVE The aortic valve is normal in structure. No aortic regurgitation is present. There is no aortic valvular stenosis. MITRAL VALVE The mitral valve is normal in structure. There is no mitral valve regurgitation noted. TRICUSPID VALVE The tricuspid valve is normal in structure. There is mild tricuspid regurgitation. Right ventricular systolic pressure is estimated at less than 30 mmHg. PULMONIC VALVE The pulmonary valve is normal in structure. GREAT VESSELS The aortic root is normal in size. The IVC is normal in size and collapses >50% with inspiration. PERICARDIAL EFFUSION There is a trace to small circumferential pericardial effusion. <Conclusion> Normal bi-ventricular systolic function. Transmitral Doppler flow pattern is Grade I-abnormal relaxation pattern. No significant valvular abnormality. There is a trace to small circumferential pericardial effusion.
[2017-07-13 16:48] VITALS: RESP 20; TEMP 98.4; O2SAT 100
[2017-07-13 17:20] VITALS: BP 166/108; PULSE 78
--- NOTE | 2017-07-13 19:21 | CARD ---
APPROVED REPORT EKG Measurement Heart [id number] <Conclusion> Normal sinus rhythm with sinus arrhythmia Minimal voltage criteria for LVH, may be normal variant Nonspecific T wave abnormality Abnormal ECG
--- NOTE | 2017-07-13 19:23 | CARD ---
APPROVED REPORT EKG Measurement Heart [id number] [place] [id number] <Conclusion> Normal sinus rhythm Nonspecific ST/T changes Abnormal ECG
--- NOTE | 2017-07-13 19:24 | CARD ---
APPROVED REPORT EKG Measurement Heart [id number] [place] [id number] <Conclusion> Normal sinus rhythm Possible Left atrial enlargement Incomplete right bundle branch block Nonspecific ST and T wave abnormality Abnormal ECG
--- NOTE | 2017-07-13 23:41 | CP.PCM.PN ---
Objective - Vital Signs/Intake and Output Vital Signs (last 24 hours): Temp Pulse Resp BP Pulse Ox 98.4 F 78 20 166/108 H 100 07/13/17 15:10 07/13/17 17:19 07/13/17 15:10 07/13/17 17:19 07/13/17 15:10 - Labs Labs: 07/13/17 07:16 07/13/17 07:16 PT 11.0 SECONDS (9.7-12.2) 07/12/17 06:48 INR 1.0 07/12/17 06:48 APTT 32 SECONDS (21-34) 07/12/17 06:48
== END 2017-07-13 18:45 | disposition home or self-care (01) | DRG 134 ==
LOC: C.ER 14:23 → C.9E 21:32 → C.6T 22:34
PROVIDERS: ADMIT Hospitalist; ATTEND Hospitalist
DX: I16.1 Hypertensive emergency (principal); N18.9 Chronic kidney disease, unspecified; E83.52 Hypercalcemia; D64.9 Anemia, unspecified; I12.9 Hypertensive chronic kidney disease with stage 1 through stage 4 chronic kidney disease, or unspecified chronic kidney disease; Z87.891 Personal history of nicotine dependence

== ENCOUNTER 2017-08-24 13:22 | Emergency (ER) | payer OTHER ==
[2017-08-24 13:40] VITALS: PULSE 71; TEMP 98.3
[2017-08-24 14:36] VITALS: BP 179/122; RESP 20; O2SAT 99
--- NOTE | 2017-08-24 14:59 | C.PDOC ---
History Of Present Illness 46yo female was evaluated in medical clinic earlier today for medication refill and was noted to have an elevated blood pressure. Upon arrival to ER, patient denies ay chest pain, shortness of breath, dizziness, or headache. She has no other medical complaints. Time Seen by Provider: 08/24/17 13:44 Chief Complaint (Nursing): High Blood Pressure History Per: Patient History/Exam Limitations: no limitations Associated Symptoms: denies: Chest Pain, Dyspnea, Dizziness, Blurred Vision, Focal Weakness, Headache Exacerbating Factor(s): Pos: None Past Medical History Reviewed: Historical Data, Nursing Documentation, Vital Signs Vital Signs: Last Vital Signs Temp 98.3 F 08/24/17 13:38 Pulse 71 08/24/17 14:35 Resp 20 08/24/17 14:35 BP 179/122 H 08/24/17 14:35 Pulse Ox 99 08/24/17 15:00 - Medical History PMH: HTN Surgical History: No Surg Hx Family History: States: Unknown Family Hx - Social History Hx Alcohol Use: No (SOCIAL) Hx Substance Use: No Review Of Systems Except As Marked, All Systems Reviewed And Found Negative. Constitutional: Negative for: Fever, Chills Cardiovascular: Negative for: Chest Pain Respiratory: Negative for: Shortness of Breath Neurological: Negative for: Dizziness Physical Exam - Physical Exam Appears: Non-toxic, No Acute Distress Skin: Normal Color, Warm, Dry Head: Atraumatic, Normacephalic Eye(s): bilateral: Normal Inspection Neck: Normal ROM, Supple Chest: Symmetrical Cardiovascular: Rhythm Regular Respiratory: Normal Breath Sounds Gastrointestinal/Abdominal: Soft, No Tenderness Extremity: Normal ROM Neurological/Psych: Oriented x3 ED Course And Treatment O2 Sat by Pulse Oximetry: 99 (RA) Pulse Ox Interpretation: Normal Medical Decision Making Medical Decision Making: Assessment: Hypertension Plan: -- Carvedilol 6.25mg PO -- Lisinopril 10mg PO On re-evaluation, patient's blood pressure has decreased. Patient given prescriptions and instructed to follow up at medical clinic. Diagnosis: Hypertension, medication refill Disposition Counseled Patient/Family Regarding: Studies Performed, Diagnosis - Disposition Referrals: [facility] [Outside] Disposition: HOME/ ROUTINE Disposition Time: 14:55 Condition: STABLE Additional Instructions: follow up with medical clinic within 2 days call to make an appointment take medications as prescribed return to ER if symptoms worsens or progress Prescriptions: Carvedilol [Coreg] 6.25 mg PO BID #40 tab Lisinopril [Prinivil] 10 mg PO DAILY #20 tablet Instructions: High Blood Pressure (DC) Forms: [facility] (Y[place]i), General Discharge Instructions - Clinical Impression Clinical Impression: Hypertension - Scribe Statement The provider has reviewed the documentation as recorded by the Kalin Swann Provider Attestation: All medical record entries made by the Kalin were at my direction and personally dictated by me. I have reviewed the chart and agree that the record accurately reflects my personal performance of the history, physical exam, medical decision making, and the department course for this patient. I have also personally directed, reviewed, and agree with the discharge instructions and disposition.
== END 2017-08-24 15:23 | disposition home or self-care (01) ==
LOC: C.ER 13:22
DX: I10 Essential (primary) hypertension (principal); Z87.891 Personal history of nicotine dependence